=== PATIENT | female | born 1995 | race Caucasian/White ===

== ENCOUNTER → 2018-03-26 16:29 | Outpatient (CLI) | payer OTHER, MEDICAID, SELFPAY | PROVIDERS: Visit Provider Specialist | DX: R39.9 Unspecified symptoms and signs involving the genitourinary system (principal) | CPT/HCPCS: 87086 ==

== ENCOUNTER 2018-05-02 15:58 | Outpatient (CLI) | payer OTHER, MEDICAID, SELFPAY | END 2018-05-02 16:45 | disposition home or self-care (01) | LOC: OB 05-05 14:26 | PROVIDERS: Visit Provider Obstetrics & Gynecology | DX: Z34.82 Encounter for supervision of other normal pregnancy, second trimester (principal); Z3A.20 20 weeks gestation of pregnancy | CPT/HCPCS: 59025; 84112; G0378; G0379 ==

== ENCOUNTER → 2018-06-05 15:51 | Outpatient (CLI) | payer OTHER, MEDICAID, SELFPAY ==
[2018-06-05 18:37] LABS: HIV 1 and 2 Antibody NEGATIVE (NEGATIVE); Hep C Virus Ab w/Reflex Quant NEGATIVE s/c (NEGATIVE)
[2018-06-09 13:33] LABS: HSV 2 IGG AB < 0.90 index (< 0.90); HSV1IGG 3.44 index (< 0.90)
== END ==
PROVIDERS: Visit Provider Specialist
DX: Z34.02 Encounter for supervision of normal first pregnancy, second trimester (principal)
CPT/HCPCS: 36415; 86695; 86696; 86703; 86787; 86803

== ENCOUNTER → 2018-06-24 16:38 | Outpatient (CLI) | payer OTHER, MEDICAID, SELFPAY ==
[2018-06-25 16:34] LABS: Strep Grp B PCR NEG for Grp B Strep
== END ==
PROVIDERS: Visit Provider Specialist
DX: Z34.93 Encounter for supervision of normal pregnancy, unspecified, third trimester (principal); Z3A.36 36 weeks gestation of pregnancy
CPT/HCPCS: 87653

== ENCOUNTER 2018-07-11 09:30 | Inpatient (IN) | payer OTHER, MEDICAID, SELFPAY ==
--- NOTE | 2018-07-11 09:54 | PM.OBHP.1 ---
OB HPI Date/Time Date of admission: 07/11/18 Date Patient Seen: 07/11/18 Time Patient Seen: 09:55 History of Present Condition Chief complaint: DARCY WINTERS : 1 Para: 0 Estimated Date of Delivery: 07/19/18 Estimated Gestational Age (weeks): 38-,6/ Narrative: Lyssa Starr is a 22 year old female one para 0 presents with history of rupture membranes. The patient had been scheduled for induction on the 13 of July. History of Present care: good care Dating criteria: LMP confirmed by 1st trimester US Ultrasounds: normal 1st trimester US, normal mid trimester US and other (Follow-up for abnormal maternal serum alpha fetoprotein which was normal) Obstetrical complications: none Medical complications: none Narrative: The patient is a 22-year-old white female one para 0 who has been seen and followed by Dr. Maryam Barroso since early March. An early ultrasound established her due date is 07/19/2018. The patient is had an uneventful . Her weight has gone from 115 lb to 140 lb for 25 lb weight gain. Her blood pressures have been normotensive. Her urines for september negative for glucose and protein. She has had adequate fundal growth. The patient because of long distance from the hospital living on [facility] was scheduled for induction on the 13 of July. She presents today with history of rupture membranes which was confirmed. Preadmission Labs Blood type: O (+) positive -: Antibody screen: negative, Cystic fibrosis screen: unknown, GBS status: negative, HBsAG: negative, HIV: negative, HSV 1: positive, HSV 2: negative and RPR/VDLR: negative -: Chlamydia screen: detected (Negative) and Gonorrhea screen: detected (Negative) -: Rubella: immune and Varicella: immune HCT: 32.8 HCAB: negative Quad screen: Abnormal (Maternal serum alpha fetoprotein was elevated with a one in 12 risk of open spinal defect. Ultrasound negative) 1 hr GTT: 118 Narrative: Patient with uneventful lab testing except for maternal serum alpha was at elevated of spina bifida or neural tube defect. Ultrasound was done and showed no neural Prior (ies) History: Primagravida Evaluation Evaluation Baseline heart rate: 140 Variability: Average (6-10) monitor accelerations: Present monitor decelerations: Absent Contraction Frequency (minutes): 4 Uterine Contraction Intensity: Moderate Category of Tracing: I Cervical dilation (cm): 3 Cervical effacement (%): 80 station: 0 Non-invasive Membranes Rupture Test: positive [facility] Social History Smoking Status: Former smoker Social History Smoking Status: Former smoker Meds Home Medications Medication Instructions Recorded Confirmed Type Double Electric Breast Pump #1 ea 04/03/18 Rx 1 tab PO DAILY #90 tab 06/10/18 Rx vitamin,calcium,xfeapcnl-pvih-qsudu acid tablet Allergies Allergy/AdvReac Type Severity Reaction Status Date / Time adhesive AdvReac Mild Rash Unverified 03/26/18 13:09 latex AdvReac Mild Rash Unverified 03/26/18 13:09 Review of Systems Review of Systems All systems reviewed & are unremarkable except as noted in HPI and below Eyes Eyes: Reports system reviewed; no additional complaints, except as documented ENT Ears, Nose, Mouth, and Throat: Yes system reviewed; no additional complaints, except as documented Cardiovascular Cardiovascular: Reports system reviewed; no additional complaints, except as documented Respiratory Respiratory: Reports system reviewed and no additional complaints, except as documented Gastrointestinal Gastrointestinal: Reports system reviewed and no additional complaints, except as documented Genitourinary Genitourinary: Reports system reviewed and no additional complaints, except as documented Musculoskeletal Musculoskeletal: Reports system reviewed; no additional complaints, except as documented Integumentary/Breasts Skin/Breast: Reports system reviewed and no additional complaints, except as documented Neurologic Neurologic: Reports system reviewed and no additional complaints, except as documented Psychiatric Psychiatric: Reports system reviewed and no additional complaints, except as documented Endocrine Endocrine: Reports system reviewed and no additional complaints, except as documented Hematologic/Lymphatic Hematologic/Lymphatic: Reports system reviewed and no additional complaints, except as documented Allergic/Immunologic Allergic/Immunologic: Reports system reviewed and no additional complaints, except as documented Exam Const General: cooperative and healthy appearing [facility] Head: normal to inspection Ears: hearing grossly normal bilaterally Nose: external nose normal Face and sinus: normal facial exam Mouth: oral mucosae normal, lip normal, tongue normal and moist mucous membranes Teeth and gingiva: dentition normal Throat: posterior oropharynx normal Eyes General: appearance normal, both eyes and all related structures Neck Neck: normal visual inspection and full ROM Chest Chest: normal inspection of the chest and normal palpation of entire chest wall Breast inspection: normal inspection of the breasts and normal inspection of the axillae Breast Palpation: normal palpation of the breasts and normal palpation of the axillae Resp Effort & Inspection: normal respiratory effort Auscultation: clear to auscultation bilaterally Cardio Palpation: normal PMI Rate: regular rate Rhythm: regular rhythm Heart Sounds: S1 normal and S2 normal GI Inspection: normal to inspection Palpation: soft and no hepatosplenomegaly Percussion: normal to percussion Auscultation: normal bowel sounds General: bladder normal to palpation External Female Exam: external appearance normal and normal appearance of the urethra Speculum Exam - Vagina: normal appearance of the vagina and normal vaginal discharge Speculum Exam - Cervix: normal appearance of the cervix Bimanual Exam- Vagina & Uterus: bladder normal to palpation OB/External & Speculum: external exam normal Manual OB Exam: dilated, effaced 75% and station 0 Uterus Location (Fundal Height): 3 Presentation: vertex Amniotic Fluid: clear Back/Spine/Pelvis Thoracic/Lumbar Spine: thoracic and lumbar spine normal to inspection Skin General: no rashes or lesions noted Neuro General: alert, oriented x3, tone normal and moves all extremities Cognition: normal cognition Speech: speech normal Gait: normal gait Motor: muscle tone normal throughout Sensory Exam: no sensory deficits noted Extrem General: normal to inspection and normal exam except as noted Psych Appearance: grossly normal and well kempt Mental Status: mental status grossly normal Speech and Movement: speech and movement normal Assessment and Plan (1) Delivery by planned , 37-39 wks due to labor, with postp compl: Onset Date: ~07/11/18 Current visit: Yes Status: Acute 39 weeks Spontaneous rupture membranes Early active labor Plan: monitor Epidural anesthesia Observation Pitocin if necessary
--- NOTE | 2018-07-11 10:06 | P.HPOB_ITS ---
OB HPI Date/Time Date of admission: 07/11/18 Date Patient Seen: 07/11/18 Time Patient Seen: 09:55 History of Present Condition Chief complaint: DARCY WINTERS : 1 Para: 0 Estimated Date of Delivery: 07/19/18 Estimated Gestational Age (weeks): 38-,6/ Narrative: Lyssa Starr is a 22 year old female one para 0 presents with history of rupture membranes. The patient had been scheduled for induction on the 13 of July. History of Present care: good care Dating criteria: LMP confirmed by 1st trimester US Ultrasounds: normal 1st trimester US, normal mid trimester US and other (Follow- up for abnormal maternal serum alpha fetoprotein which was normal) Obstetrical complications: none Medical complications: none Narrative: The patient is a 22-year-old white female one para 0 who has been seen and followed by Dr. Maryam Barroso since early March. An early ultrasound established her due date is 07/19/2018. The patient is had an uneventful . Her weight has gone from 115 lb to 140 lb for 25 lb weight gain. Her blood pressures have been normotensive. Her urines for september negative for glucose and protein. She has had adequate fundal growth. The patient because of long distance from the hospital living on [facility] was scheduled for induction on the 13 of July. She presents today with history of rupture membranes which was confirmed. Preadmission Labs Blood type: O (+) positive -: Antibody screen: negative, Cystic fibrosis screen: unknown, GBS status: negative, HBsAG: negative, HIV: negative, HSV 1: positive, HSV 2: negative and RPR/VDLR: negative -: Chlamydia screen: detected (Negative) and Gonorrhea screen: detected (Negative) -: Rubella: immune and Varicella: immune HCT: 32.8 HCAB: negative Quad screen: Abnormal (Maternal serum alpha fetoprotein was elevated with a one in 12 risk of open spinal defect. Ultrasound negative) 1 hr GTT: 118 Narrative: Patient with uneventful lab testing except for maternal serum alpha was at elevated of spina bifida or neural tube defect. Ultrasound was done and showed no neural Prior (ies) History: Primagravida Evaluation Evaluation Baseline heart rate: 140 Variability: Average (6-10) monitor accelerations: Present monitor decelerations: Absent Contraction Frequency (minutes): 4 Uterine Contraction Intensity: Moderate Category of Tracing: I Cervical dilation (cm): 3 Cervical effacement (%): 80 station: 0 Non-invasive Membranes Rupture Test: positive [facility] Social History Smoking Status: Former smoker Social History Smoking Status: Former smoker Meds Home Medications Medication Instructions Recorded Confirmed Type Double Electric Breast Pump #1 ea 04/03/18 Rx 1 tab PO DAILY #90 tab 06/10/18 Rx vitamin,calcium,zolkebtx-wbej-ssdpp acid tablet Allergies Allergy/AdvReac Type Severity Reaction Status Date / Time adhesive AdvReac Mild Rash Unverified 03/26/18 13:09 latex AdvReac Mild Rash Unverified 03/26/18 13:09 Review of Systems Review of Systems All systems reviewed & are unremarkable except as noted in HPI and below Eyes Eyes: Reports system reviewed; no additional complaints, except as documented ENT Ears, Nose, Mouth, and Throat: Yes system reviewed; no additional complaints, except as documented Cardiovascular Cardiovascular: Reports system reviewed; no additional complaints, except as documented Respiratory Respiratory: Reports system reviewed and no additional complaints, except as documented Gastrointestinal Gastrointestinal: Reports system reviewed and no additional complaints, except as documented Genitourinary Genitourinary: Reports system reviewed and no additional complaints, except as documented Musculoskeletal Musculoskeletal: Reports system reviewed; no additional complaints, except as documented Integumentary/Breasts Skin/Breast: Reports system reviewed and no additional complaints, except as documented Neurologic Neurologic: Reports system reviewed and no additional complaints, except as documented Psychiatric Psychiatric: Reports system reviewed and no additional complaints, except as documented Endocrine Endocrine: Reports system reviewed and no additional complaints, except as documented Hematologic/Lymphatic Hematologic/Lymphatic: Reports system reviewed and no additional complaints, except as documented Allergic/Immunologic Allergic/Immunologic: Reports system reviewed and no additional complaints, except as documented Exam Const General: cooperative and healthy appearing [facility] Head: normal to inspection Ears: hearing grossly normal bilaterally Nose: external nose normal Face and sinus: normal facial exam Mouth: oral mucosae normal, lip normal, tongue normal and moist mucous membranes Teeth and gingiva: dentition normal Throat: posterior oropharynx normal Eyes General: appearance normal, both eyes and all related structures Neck Neck: normal visual inspection and full ROM Chest Chest: normal inspection of the chest and normal palpation of entire chest wall Breast inspection: normal inspection of the breasts and normal inspection of the axillae Breast Palpation: normal palpation of the breasts and normal palpation of the axillae Resp Effort & Inspection: normal respiratory effort Auscultation: clear to auscultation bilaterally Cardio Palpation: normal PMI Rate: regular rate Rhythm: regular rhythm Heart Sounds: S1 normal and S2 normal GI Inspection: normal to inspection Palpation: soft and no hepatosplenomegaly Percussion: normal to percussion Auscultation: normal bowel sounds General: bladder normal to palpation External Female Exam: external appearance normal and normal appearance of the urethra Speculum Exam - Vagina: normal appearance of the vagina and normal vaginal discharge Speculum Exam - Cervix: normal appearance of the cervix Bimanual Exam- Vagina & Uterus: bladder normal to palpation OB/External & Speculum: external exam normal Manual OB Exam: dilated, effaced 75% and station 0 Uterus Location (Fundal Height): 3 Presentation: vertex Amniotic Fluid: clear Back/Spine/Pelvis Thoracic/Lumbar Spine: thoracic and lumbar spine normal to inspection Skin General: no rashes or lesions noted Neuro General: alert, oriented x3, tone normal and moves all extremities Cognition: normal cognition Speech: speech normal Gait: normal gait Motor: muscle tone normal throughout Sensory Exam: no sensory deficits noted Extrem General: normal to inspection and normal exam except as noted Psych Appearance: grossly normal and well kempt Mental Status: mental status grossly normal Speech and Movement: speech and movement normal Assessment and Plan (1) Delivery by planned , 37-39 wks due to labor, with postp compl: Onset Date: ~07/11/18 Current visit: Yes Status: Acute 39 weeks Spontaneous rupture membranes Early active labor Plan: monitor Epidural anesthesia Observation Pitocin if necessary
[2018-07-11 10:34] LABS: Add Manual Diff / Slide Review NO; Basophils Absolute Auto 100 /uL (0-100); Basophils Percent Auto 0.7 % (0-2); Eosinophils Absolute Auto 200 /uL (0-450); Eosinophils Percent Auto 1.5 % (2-4); Hematocrit 36.6 % (36-46); Hemoglobin 12.3 g/dL (12.0-16.0); Lymphocytes Absolute Auto 2900 /uL (1100-4500); Lymphocytes Percent Auto 18.6 % (25-40); Mean Corpuscular HGB Conc 33.5 % (30-36); Mean Corpuscular Hemoglobin 30.9 PG (26-34); Monocytes Absolute Auto 1300 /uL (0-900); Monocytes Percent Auto 8.2 % (3-14); Neutrophils Absolute Auto 11300 /uL (1500-7000); Platelet Count 249 X10^3/uL (150-400); Red Blood Cell Count 3.98 X10^6/uL (4.0-5.2); White Blood Cell Count 15.8 X10^3/uL (4.5-11.0)
[2018-07-11 10:56] VITALS: BP 141/71
[2018-07-11] MEDS: LACTATED RINGERS 1,000 ML 100 ML IV (14:43)
[2018-07-11] MEDS: OXYTOCIN PREMIX 30 UNIT/500 ML PLAST..BAG IV (14:49)
--- NOTE | 2018-07-11 19:50 | PM.OBPRVD ---
Events: Premature Rupture of Membrane Delivery date: 07/11/18 Cervical ripening method: none Induction method: none Route of delivery: Episiotomy description: None L&D Laceration Description: None Estimated blood loss (mL): 200 Anesthesia type: Epidural Complications: None Narrative: Patient is a 22-year-old white female one para 0 presented with rupture membranes. Patient went into spontaneous labor. Pitocin was added but led to hypertonic contractions. Patient received an epidural at 4-5 cm. Patient made good progress to complete and pushed and delivered spontaneously a live born female infant with scores of eight at 1 min and nine at 5 min in good condition. Placenta delivered spontaneously. Cord had three vessels. There were no cervical vaginal or perineal tears. The estimated blood loss was 200 cc Plan for aftercare: Routine care
[2018-07-12 05:50] LABS: Hematocrit 35.5 % (36-46); Hemoglobin 12.1 g/dL (12.0-16.0)
--- NOTE | 2018-07-12 09:36 | PM.OBPN.1 ---
Subjective - OB Interval history: Patient is a 22-year-old white female one now para one status post spontaneous vaginal delivery without difficulty. She had a live-born female infant weighing 6 lb. Patient comments: no complaints [place] baby status: doing well feeding status: exclusively breast feeding Narrative: Baby is doing well Date Patient Seen: 07/12/18 Time Patient Seen: 09:37 Exam Vital Signs (past 8 hours): Fundus U minus two Lochia scant Objective Labs Result Diagrams: 07/12/18 05:36 Labs: Laboratory Results - last 24 hr 07/11/18 07/11/18 07/12/18 10:00 10:00 05:36 WBC 15.8 H RBC 3.98 L Hgb 12.3 12.1 Hct 36.6 35.5 L MCV 92.0 MCH 30.9 MCHC 33.5 RDW 14.0 Plt Count 249 Neut % (Auto) 71.0 Lymph % (Auto) 18.6 L [place] % (Auto) 8.2 Eos % (Auto) 1.5 L Baso % (Auto) 0.7 Neut # (Auto) 61071 H Lymph # (Auto) 2900 [place] # (Auto) 1300 H Eos # (Auto) 200 Baso # (Auto) 100 Blood Type O Positive Antibody Screen Negative Assessment & Plan (1) Delivery by planned , 37-39 wks due to labor, with postp compl: Status: Acute Current Visit: Yes Plan day: 1 plan OB: routine care Comments: Doing well no problem Time Spent With Patient Total time spent is greater than 50% in coordination of care (as documented) at patient's floor/unit and/or counseling patient: less than 15 minutes
[2018-07-12] MEDS: IBUPROFEN 600 MG TABLET PO (18:57)
[2018-07-12] MEDS: DERMOPLAST SPRAY 20% 60 ML 1 SPRAY TOP (19:51)
[2018-07-13] MEDS: IBUPROFEN 600 MG TABLET PO ×2 (04:50→11:22)
--- NOTE | 2018-07-13 07:57 | PM.OBDS.1 ---
Discharge Providers Date of admission: 07/11/18 09:30 Consults: 07/11/18 20:11 Consult to Attorney Lawyer Routine Comment: Discharge provider: Maryam Barroso MD Summary Date Patient Seen: 07/13/18 Hospital Course: Patient arrived on Labor and delivery with spontaneous rupture membranes. She received an epidural catheter for pain control. She received Pitocin augmentation for labor. She delivered spontaneously without tears other than a left labial tear that was not repaired. She denies any signs or symptoms of preeclampsia. She is breast-feeding. She is urinating and ambulating well. Blood pressure 107/65, pulse 79, temperature 97.7? Abdomen is soft, nontender. Uterus is firm, at U, appropriately tender. Patient has swelling of her left labial tear but no evidence of infection. Mild lochia. Extremities without edema and nontender. Blood type O positive she is rubella immune Peripartum Data Delivery Method: Natural Vaginal Procedures: Epidural catheter, Pitocin augmentation of labor, vaginal delivery complications: none 1: Gender: Female Disposition of : home Discharge Diagnosis (1) Delivery by planned , 37-39 wks due to labor, with postp compl: Status: Acute (2) Vaginal delivery: Status: Acute Status at Discharge Functional status at discharge: independent ambulation Overall status at discharge: patient is progressing back to baseline Time Spent with Patient Total time spent providing and/or coordinating discharge services: Objective Labs Result Diagrams: 07/12/18 05:36 Discharge Plan Discharge Plan Patient Disposition: Home Discharge Med Rec/Prescriptions Prescriptions: New ibuprofen 600 mg Tablet 600 mg PO Q6HR PRN (Reason: Pain, Mild (1-3)) Qty: 30 RF: 0 Continued Double Electric Breast Pump Qty: 1 RF: 0 prenat.vits,beverly,iyb-mrzs-xajgu tablet 1 tab PO DAILY Qty: 90 RF: 3 Follow up/Referrals: Maryam Barroso MD [Physician] - 08/20/18 (F/U appt with Dr. Barroso on August 20 1PM in [place].) Provider Discharge Instructions Diet: Regular Activity: Nothing in vagina for 4 weeks Skin/Wound/Dressing Care Report to your healthcare provider any signs of infection, such as:: chills, fever and increased pain Visit Report/Discharge Packet Visit Report Forms: Stroke Signs & Symptoms Discharge Data Attending Provider: Rio Masonit Date/Time: 07/11/18 09:30
--- NOTE | 2018-07-13 08:10 | P.DS_ITS ---
Discharge Providers Date of admission: 07/11/18 09:30 Consults: 07/11/18 20:11 Consult to Health Promotion Coordinator Routine Comment: Discharge provider: Rio Mason MD Discharge Date: 07/13/18 Summary Hospital Course: Patient arrived on Labor and delivery with spontaneous rupture membranes. She received an epidural catheter for pain control. She received Pitocin augmentation for labor. She delivered spontaneously without tears other than a left labial tear that was not repaired. She denies any signs or symptoms of preeclampsia. She is breast-feeding. She is urinating and ambulating well. Blood pressure 107/65, pulse 79, temperature 97.7? Time Spent with Patient Total time spent providing and/or coordinating discharge services: Objective Labs Result Diagrams: 07/12/18 05:36 Discharge Plan Discharge Plan Patient Disposition: Home Discharge Med Rec/Prescriptions Prescriptions: New ibuprofen 600 mg Tablet 600 mg PO Q6HR PRN (Reason: Pain, Mild (1-3)) Qty: 30 RF: 0 Continued Double Electric Breast Pump Qty: 1 RF: 0 prenat.vits,beverly,vdw-enog-ghtjc tablet 1 tab PO DAILY Qty: 90 RF: 3 Follow up/Referrals: Maryam Barroso MD [Physician] - 08/20/18 (Call for time the appointment is in in Friday) Provider Discharge Instructions Diet: Regular Activity: Nothing in vagina for 4 weeks Skin/Wound/Dressing Care Report to your healthcare provider any signs of infection, such as:: chills, fever and increased pain Discharge Data Attending Provider: Rio Mason Admit Date/Time: 07/11/18 09:30
[2018-07-13] MEDS: DOCUSATE 250 MG CAPSULE PO (09:22)
== END 2018-07-13 11:45 | disposition home or self-care (01) | DRG 560 ==
PROVIDERS: Specialist
DX: O42.02 Full-term premature rupture of membranes, onset of labor within 24 hours of rupture (principal); Z3A.38 38 weeks gestation of pregnancy; Z37.0 Single live birth
CPT/HCPCS: 01967; 59025; 59050; 59409; 84112; 85014; 85018; 85025; 86850; 86900; 86901; G0379; J2590